=== PATIENT | male | born 1990 | race Caucasian/White ===

== ENCOUNTER 2022-06-07 13:48 | Emergency (ER) | payer MEDICAID, SELFPAY ==
--- NOTE | ~2022-06-07 | XR_ITS ---
EXAMINATION: XR chest 1V portable 06/07/2022 14:04 INDICATION: Shortness of breath PROCEDURE: AP portable chest COMPARISON: No prior studies for comparison. FINDINGS: The lungs are clear. The cardiomediastinal silhouette is within normal limits. There are no pleural effusions. There is no pneumothorax suspected. IMPRESSION: 1: NO ACUTE CARDIOPULMONARY DISEASE. Reviewed, dictated and finalized at location A.
[2022-06-07 13:38] VITALS: PULSE 95
[2022-06-07 13:50] VITALS: BP 133/95; PULSE 126; RESP 22; TEMP 36.2; O2SAT 100
[2022-06-07] MEDS: SODIUM CHLORIDE 0.9% IV 1,000 ML 999 ML IV CONT (13:53)
[2022-06-07] MEDS: ONDANSETRON INJ 4 MG/2 ML VIAL IV PUSH ×2 (13:53→14:15)
--- NOTE | 2022-06-07 14:00 | PC.NURSE ---
s/p xray films being taken pt had large emesis. pt cleansed and warm blankets provided. step mother at bedside.
[2022-06-07 14:37] LABS: Basophils Absolute Auto 0.1 K/mm3 (0.0-0.1); Basophils Percent Auto 0.3 % (0.2-1.2); Hematocrit 44.9 % (42.0-52.0); Hemoglobin 14.9 g/dL (14.0-18.0); Immature Granulocyte Percent A 0.8 % (0-0.5); Lymphocytes Absolute Auto 1.12 K/mm3 (0.9-3.2); Lymphocytes Percent Auto 4.7 % (18.3-44.2); Mean Corpuscular HGB Conc 33.2 g/dl (32-36); Mean Corpuscular Hemoglobin 32.6 pg (26-34); Mean Corpuscular Volume 98.2 fl (80-100); Mean Platelet Volume 11.2 fl (7.4-10.4); Monocytes Absolute Auto 0.8 K/mm3 (0.1-0.6); Monocytes Percent Auto 3.5 % (2.6-8.5); Neutrophils Absolute Auto 21.5 K/mm3 (1.3-6.7); Neutrophils Percent Auto 90.7 % (45.5-73.1); Platelet Count Result 233 k/mm3 (150-375); Red Blood Count 4.57 M/mm3 (4.6-6.20); White Blood Count 23.7 K/mm3 (4.5-10.0)
[2022-06-07 14:46] LABS: Alanine Aminotransferase 39 U/L (6-50); Alkaline Phosphatase 95 U/L (38-126); Anion Gap 17 mmol/L (8-16); Aspartate Amino Transferase 30 U/L (17-59); Bilirubin,Total 0.6 mg/dL (0.2-1.3); Blood Urea Nitrogen 21 mg/dL (9-20); Calcium 8.6 mg/dL (8.4-10.2); Carbon Dioxide 24 mmol/L (22-30); Chloride 101 mmol/L (98-107); Estimated CRCL calculation 86 ml/min; Estimated Glomerular Filt Rate > 60; Glucose 171 mg/dL (65-110); Potassium 3.6 mmol/L (3.4-5.0); Sodium 142 mmol/L (137-145)
--- NOTE | 2022-06-07 14:56 | ED.OVERDOSE ---
HPI - Overdose General Chief Complaint: Overdose Stated Complaint: fentanyl OD - semi-responsive after narcan History of Present Illness HPI Narrative: Patient is a 31-year-old male who presents ER after suffering opiate overdose. Patient has history of fentanyl abuse and was found unresponsive in a shed in his backyard. EMS arrived and placed the daughter given 2 doses of Narcan. EMS then gave an additional 4 mg of Narcan. Patient is now awake alert and oriented. He is starting to have some withdrawal cyst numbness including nausea/vomiting and shaking. He recently got out of [facility] and had uses same amount of fentanyl a typically does. No other complaints at this time. Related Data Allergies Allergy/AdvReac Type Severity Reaction Status Date / Time No Known Allergies Allergy Unverified 07/23/17 19:19 Review of Systems Review of Systems: All systems reviewed & are unremarkable except as noted in HPI and below Constitutional: Constitutional: Reports chills, Denies fatigue and Denies fever(s) ENT: Denies nasal congestion and Denies sore throat Cardiovascular: Cardiovascular: Denies chest pain, Denies rapid heart rate and Denies radiating jaw, neck or arm pain Respiratory: Respiratory: Denies cough and Denies dyspnea Gastrointestinal: Gastrointestinal: Denies abdominal pain, Reports nausea and Reports vomiting Neurologic: Denies headache(s), Denies focal weakness and Denies numbness PMFSH Past Medical History Medical History (Updated 06/07/22 @ 17:59 by Brad Brambila MD) Healthy adult male Surgical History Surgical History (Updated 06/07/22 @ 14:58 by Brad Brambila MD) No history of previous surgery Social History Social History (Updated 06/07/22 @ 14:58 by Brad Brambila MD) Substance use type: opiates Exam Narrative: GENERAL: Uncomfortable-appearing, well-nourished, tremulous. HEAD: Normocephalic, atraumatic. EYES: PERRL and EOMI. ENT: Mucous membranes moist. CHEST: Clear to auscultation. No respiratory distress. HEART: Regular rate and rhythm. No murmur heard. Normal peripheral pulses. ABDOMEN: Soft, nontender, nondistended, normal active bowel sounds. EXTREMITIES: Normal range of motion. No edema. SKIN: Warm, dry, no rash. NEURO: No focal deficits. Alert and oriented x3. PSYCH: Normal mood and affect. Course Course Emergency Course: Patient initially with a lot of emesis and that is when his blood was drawn. Suspect acute phase reactants due to the situation leading to an elevated white blood cell count. Patient has been eating and drinking and then developed recurrent vomiting. At this time he has no nausea, he wishes to go home. He is no longer tremulous. No tachycardia. Lungs are clear. He has had no hypoxia. Vital Signs Vital signs: Vital Signs Pulse Rate 95 06/07/22 13:38 Temperature 97.2 F L 06/07/22 13:50 Pulse Rate 126 H 06/07/22 13:50 Respiratory Rate 22 H 06/07/22 13:50 Blood Pressure 133/95 H 06/07/22 13:50 Pulse Oximetry 100 06/07/22 13:50 Oxygen Delivery Room Air 06/07/22 13:50 MDM - Overdose Lab Data Result diagrams: 06/07/22 14:21 06/07/22 14:21 Labs: Lab Results 06/07/22 06/07/22 Range/Units 14:21 14:21 WBC 23.7 H (4.5-10.0) K/mm3 RBC 4.57 L (4.6-6.20) M/mm3 Hgb 14.9 (14.0-18.0) g/dL Hct 44.9 (42.0-52.0) % MCV 98.2 (80-100) fl MCH 32.6 (26-34) pg MCHC 33.2 (32-36) g/dl RDW 13.0 (11.5-14.5) % Plt Count 233 (150-375) k/mm3 MPV 11.2 H (7.4-10.4) fl Immature Gran % (Auto) 0.8 H (0-0.5) % Neut % (Auto) 90.7 H (45.5-73.1) % Lymph % (Auto) 4.7 L (18.3-44.2) % [place] % (Auto) 3.5 (2.6-8.5) % Eos % (Auto) 0.0 (0-4.4) % Baso % (Auto) 0.3 (0.2-1.2) % Lymph # (Auto) 1.12 (0.9-3.2) K/mm3 [place] # (Auto) 0.8 H (0.1-0.6) K/mm3 Eos # (Auto) 0.0 (0-0.3) K/mm3 Baso # (Auto) 0.1 (0.0-0.1) K/mm3 Abs Immat Gran (auto
[2022-06-07] MEDS: PROMETHAZINE HCL 25 MG/ML AMPUL 12.5 MG IV PUSH (15:21)
[2022-06-07 18:24] VITALS: BP 113/71; PULSE 83; RESP 16
== END 2022-06-07 18:24 | disposition home or self-care (01) ==
PROVIDERS: Emergency Provider Emergency Medicine
DX: T40.601A Poisoning by unspecified narcotics, accidental (unintentional), initial encounter (principal)
CPT/HCPCS: 36415; 71045; 80053; 85025; 96361; 96374; 96375; 99284; J2405; J2550; J7030

== ENCOUNTER 2022-10-23 07:20 | Emergency (ER) | payer OTHER, SELFPAY ==
[2022-10-23 07:31] VITALS: BP 157/97; PULSE 97; RESP 20; TEMP 36.7; O2SAT 99
--- NOTE | 2022-10-23 08:19 | ED.SKABFB ---
HPI - Skin/Abscess/Foreign Bdy General Chief complaint: Skin/Abscess/Foreign Body Stated complaint: possible cyst/abscess Time Seen by Provider: 10/23/22 08:19 Source: patient Mode of arrival: ambulatory Limitations: no limitations History of Present Illness HPI narrative: Patient is a 32-year-old male with a history of methamphetamine abuse presenting to the emergency department for evaluation of lesion to left upper thigh. Patient states that he was using methamphetamines overnight, states that he thinks he hallucinated bleeding in the left upper thigh area. States that he had a small infected hair follicle there last week that he did pop with his fingers. Patient states that he was squeezing the area again last night and believes he saw a large amount of blood and pus present. Patient denies fever or chills. He has been ambulatory. He denies focal numbness or weakness. He denies loss of strength in that leg. He denies other rash. Patient last used methamphetamines approximately 7 hours ago. He states that he may have been hallucinating but he is not entirely sure. Patient does not have a history of skin infection in the past. Related Data Allergies Allergy/AdvReac Type Severity Reaction Status Date / Time No Known Allergies Allergy Verified 10/23/22 07:30 Review of Systems Review of Systems: CONSTITUTIONAL: Denies fever CARDIOVASCULAR: Denies chest pain RESPIRATORY: Denies cough or dyspnea. GASTROINTESTINAL: Denies abdominal pain SKIN: Denies rash, reports lesion to left upper thigh, abrasion present MUSCULOSKELETAL: Denies back pain NEUROLOGIC: Denies headache, no numbness or weakness PMFSH Past Medical History Medical History (Updated 10/23/22 @ 08:51 by Jessica Ferrera MD) Healthy adult male Methamphetamine abuse Surgical History Surgical History (Updated 06/07/22 @ 14:58 by Brad Brambila MD) No history of previous surgery Social History Social History (Updated 10/23/22 @ 08:51 by Jessica Ferrera MD) Substance use type: amphetamines and opiates Exam Narrative: GENERAL: Awake, alert, conversant HEAD: Normocephalic, atraumatic. EYES: PERRLA and EOMI. ENT: Nares clear, no rhinorrhea or epistaxis. Mucous membranes moist. NECK: Supple. CHEST: No respiratory distress, breathing even and non labored HEART: Regular rate, sinus rhythm ABDOMEN:Non distended, non tender EXTREMITIES: Normal range of motion. No edema. SKIN: Warm, dry. Patient with area of erythema 2 x 2 cm, to the left anterior thigh, without crepitus, induration, ecchymosis. No fluctuance. There is no palpable abscess. This does appear to be consistent with superficial abrasion but because there is a small amount of erythema and given patient's history, concerning for cellulitis. Patient is neurovascularly intact, popliteal pulse 2+. Full range of motion in the left lower extremity. NEURO:No focal deficits. Alert and oriented x3. Strength in the left lower extremity is 5/5. Strength bilateral lower extremities 5/5. Intact distal sensation of the upper and lower extremities. Course Vital Signs Vital signs: Vital Signs Temperature 36.7 C 10/23/22 07:31 Pulse Rate 97 10/23/22 07:31 Respiratory Rate 20 10/23/22 07:31 Blood Pressure 157/97 H 10/23/22 07:31 Pulse Oximetry 99 10/23/22 07:31 Oxygen Delivery Room Air 10/23/22 07:31 Temperature 36.7 C 10/23/22 07:31 Pulse Rate 97 10/23/22 07:31 Respiratory Rate 20 10/23/22 07:31 Blood Pressure 157/97 H 10/23/22 07:31 Pulse Oximetry 99 10/23/22 07:31 Oxygen Delivery Room Air 10/23/22 07:31 MDM - Skin/Abscess/Foreign Bdy MDM Narrative Medical decision making narrative: The history was obtained from the patient. Social determinants of health include poor health literacy, polysubstance abuse. I did review the patient's external medical records. Patient presenting for evaluation of potential abscess versus cellulitis to the left ant
[2022-10-23] MEDS: SULFAMETHOXAZOLE/TRIMETHOPRIM 800/160 MG DS TABLET 1 TAB PO (08:55)
[2022-10-23] MEDS: CEPHALEXIN 500 MG CAPSULE PO (08:55)
[2022-10-23 08:58] VITALS: BP 149/92; PULSE 104; RESP 16; TEMP 36.6; O2SAT 99
== END 2022-10-23 09:06 | disposition home or self-care (01) ==
PROVIDERS: Emergency Provider Emergency Medicine
DX: L03.116 Cellulitis of left lower limb (principal); F15.10 Other stimulant abuse, uncomplicated
CPT/HCPCS: 99283; A9270